=== PATIENT | female | born 1985 | race Two or more races ===

== ENCOUNTER 2024-10-23 15:15 | Emergency (ER) | payer MEDICAID, SELFPAY ==
[2024-10-23 15:23] VITALS: BP 110/73; PULSE 100; RESP 18; TEMP 38.2; O2SAT 97; BMI 27.4
--- NOTE | 2024-10-23 15:51 | PD.EDRME ---
Rapid Medical Screening Exam RME Arrival date/time: 10/23/24 15:15 Chief Complaint: Dental/Oral/Throat Time Seen by Provider: 10/23/24 15:17 Vital signs: Vital Signs Temperature 100.8 F H 10/23/24 15:23 Pulse Rate 100 10/23/24 15:23 Respiratory Rate 18 10/23/24 15:23 Blood Pressure 110/73 10/23/24 15:23 Pulse Oximetry (%) 97 10/23/24 15:23 Oxygen Delivery Method Room Air 10/23/24 15:23 RME Narrative: 38-year-old female presents to the ED with a complaint of sore throat, swollen glands, fever since yesterday. She is unable to swallow her oral secretions. She has had pain on the right side of her neck as well as a headache. She has had nausea and lower abdominal pain. She is unable to eat or drink anything. I have greeted and performed a focused initial assessment of this patient. A comprehensive ED assessment and evaluation of the patient, analysis of all test results, and completion of the medical decision making process will be conducted by additional ED providers.
[2024-10-23] MEDS: SODIUM CHLORIDE 0.9% 1000 ML 1,000 ML 999 ML IV (16:09)
[2024-10-23] MEDS: cefTRIAXone 2 GM in SODIUM CHLORIDE 0.9% (Popper) 50 ML IV (16:09)
[2024-10-23] MEDS: DEXAMETHASONE SOD PHOS INJ 10 MG/ML VIAL IVP (16:10)
[2024-10-23 16:15] LABS: Lactate (Lactic Acid) 0.8 mMol/L (0.4-2.0)
[2024-10-23 16:17] LABS: Basophils % (Auto) 0 % (0-2.5); Eosinophils % (Auto) 0 % (0-10); Hematocrit 39.5 % (36.0-46.0); Immature Granulocytes % (Auto) 0 % (0-0); Immature Granulocytes Auto 0.08 Thou/mm3 (0.00-0.00); Lymphocytes # (Auto) 1.8 Thou/mm3 (1.0-4.8); Lymphocytes % (Auto) 10 % (10-50); Mean Corpuscular HGB Conc 35.4 g/dl (31.0-37.0); Mean Corpuscular Volume 82 fL (80-100); Monocytes # (Auto) 1.1 Thou/mm3 (0.0-0.8); Monocytes % (Auto) 6 % (0-12); Neutrophils # (Auto) 15.4 Thou/mm3 (1.8-7.7); Neutrophils % (Auto) 84 % (37-80); Nucleated Red Blood Cell % 0 /100 WBC (0); Platelet Count 254 Thou/mm3 (140-440); RDW Standard Deviation 38.7 fL (36.4-46.3); Red Blood Count 4.82 Miln/mm3 (4.00-5.20); White Blood Count 18.4 Thou/mm3 (3.6-11.0)
--- NOTE | 2024-10-23 16:17 | EDNOTE_ITS ---
ED Dental RME/HPI General Chief complaint: Dental/Oral/Throat Stated complaint: SORE/SWOLLEN THROAT Time Seen by Provider: 10/23/24 15:17 Arrival date/time: 10/23/24 15:15 Limitations: no limitations RME / HPI RME / HPI Narrative: 38-year-old female presents to the ED with a complaint of sore throat, swollen glands, fever since yesterday. She is unable to swallow her oral secretions. She has had pain on the right side of her neck as well as a headache. She has had nausea and lower abdominal pain. She is unable to eat or drink anything. I have greeted and performed a focused initial assessment of this patient. A comprehensive ED assessment and evaluation of the patient, analysis of all test results, and completion of the medical decision making process will be conducted by additional ED providers. DR. ARIZA MAIN ED EVALUATION: 38 year old female with no stated medical history presents to the ED for evaluation of sore throat, right sided neck pain, and fevers beginning yesterday. Accompanied by difficulty swallowing and eating due to pain although states she is still able to swallow water. No other associated symptoms reported. No history of similar symptoms. Related Data Previous Rx's ?Medication ?Instructions ?Recorded amoxicillin 875 mg-potassium 1 tab PO BID peritonsilla r abscess 10/23/24 clavulanate 125 mg tablet #20 tabs prednisone 20 mg tablet 20 mg PO QDAY peritonsillar 10/23/24 abscess #18 tabs Allergies Allergy/AdvReac Type Severity Reaction Status Date / Time No Known Allergies Allergy Verified 10/23/24 15:18 Review of Systems Review of Systems Systems Reviewed: All systems reviewed, normal except as documented Past Medical History Past Medical History CARDIAC: Negative Congestive Heart Failure RESPIRATORY: Negative Chronic Obstructive Pulmonary Disease (COPD) GENITOURINARY: Negative Renal Disease ENDOCRINE: Negative Diabetes Mellitus Type 1 or Diabetes Mellitus Type 2 Social History SMOKING STATUS: Never smoker ED Exam General Limitations: Present no limitations General appearance: Present alert and other (ill appearing ) Head Head exam: Present atraumatic, normocephalic and normal inspection Eye Eye exam: Present normal appearance, PERRL and EOMI ENT ENT exam: Present normal exam, mucous membranes moist and other (right peritonsillar area with erythema, no exudate, both tonsillar pillars were erythematous, no lymph nodes ) Neck Neck exam: Present normal inspection, full ROM and trachea midline Chest Chest inspection: Present normal inspection and symmetric chest wall rise Respiratory Respiratory exam: Present normal lung sounds bilaterally Cardiovascular Cardiovascular exam: Present regular rate, normal rhythm and normal heart sounds Abdominal Exam Abdominal exam: Present soft and normal bowel sounds Extremities Exam Extremities exam: Present normal inspection and full ROM Back Exam Back exam: Present normal inspection and full ROM Neurological Exam Neurological exam: Present alert, oriented X3 and CN II-XII intact Psychiatric Psychiatric exam: Present normal affect and normal mood Skin Skin exam: Present warm, dry, intact and normal color Course Quality Measures none Orders Category Date Time Status Bedside COVID-19 Antigen Test NOW Care 10/23/24 15:46 Active Bedside Influenza A&B Antigen Test NOW Care 10/23/24 15:48 Completed Blood Culture (Lab) Stat Lab 10/23/24 16:23 Received CBC Stat Lab 10/23/24 16:08 Completed CMP [Comprehensive Metabolic Panel] Stat Lab 10/23/24 16:08 Completed Lactic Acid [Lactate (Lactic Acid)] Stat Lab 10/23/24 16:08 Completed Strep A Rapid Stat Lab 10/23/24 16:03 Completed Dexamethasone Inj [Decadron Inj] Med 10/23/24 15:48 Discontinued 10 mg IVP X1 ONE Dexamethasone Inj [Decadron Inj] Med 10/23/24 17:42 Discontinued 6 mg IVP X1 ONE Sodium Chloride 0.9% 1000 ml [Ns] 1,000 ml Med 10/23/24 15:48 Discontinued IV 999 mls/hr [id number] [Rocephin] 2 gm Med 10/23/24 15:48 Active SODIUM CHLORIDE 0.9% (Popper) [Ns 0.9% (P)] 50 ml IV QDAY Vital Signs Vital signs: Vital Signs Temperature 100.8 F H 10/23/24 15:23 Pulse Rate 100 10/23/24 15:23 Respiratory Rate 18 10/23/24 15:23 Blood Pressure 110/73 10/23/24 15:23 Pulse Oximetry (%) 97 10/23/24 15:23 Oxygen Delivery Method Room Air 10/23/24 15:23 Pulse ox is 97% on room air which is adequate. Dental / Oral MDM Narrative MDM Narrative:: Teagan Giordano am scribing for and in the presence of Dr. Ariza. Patient data External records reviewed:: None (No previous records for review ) Clinical information provided by:: patient Social determinants that could affect healthcare access:: none Patient has the following chronic illnesses:: None How is presenting disease/condition affected by chronic disease/condition?: no chronic disease Evaluation data The following diagnostics were reviewed and interpreted by me:: lab results Lab and/or radiology exams considered but not ordered:: None Interpretation Summary: Leukocytosis, CMP within normal limits Medications / Prescriptions Medications or Prescriptions considered but not ordered:: None Medication administrations:: Medication Administration History Ceftriaxone Sodium 2 gm/ (Sodium Chloride) 50 mls @ 100 mls/hr IV QDAY EVELIN Stop: 10/30/24 15:47 Last Infusion: 10/23/24 16:41 Dose: Infused Documented By: Admin: 10/23/24 16:09 Dose: 100 mls/hr Documented By: GABO Discontinued Medications Dexamethasone Sodium Phosphate (Dexamethasone Sod Phos Inj 10 Mg/Ml Vial) 10 mg IVP X1 ONE Stop: 10/23/24 15:49 Last Admin: 10/23/24 16:10 Dose: 10 mg Documented By: GABO Dexamethasone Sodium Phosphate (Dexamethasone Sod Phos Inj 10 Mg/Ml Vial) 6 mg IVP X1 ONE Stop: 10/23/24 17:43 Last Admin: 10/23/24 17:47 Dose: 6 mg Documented By: GABO Sodium Chloride (Ns) 1,000 mls @ 999 mls/hr IV .Q1H1M ONE Stop: 10/23/24 16:48 Last Infusion: 10/23/24 17:17 Dose: Infused Documented By: Admin: 10/23/24 16:09 Dose: 999 mls/hr Documented By: GABO See above Consultations Consultation(s) initiated? (list below): No Diagnosis Dental Differential Diagnosis: gingival abscess, dental abscess and other (peritonsillar abscess, tonsillitis ) Most likely diagnosis given after review of the tests above:: strep pharyngitis Admission Indicated Admission indicated?: not indicated Admission Request Was there a request for admission?: No Disposition Plan Disposition Plan: Discharge Discharge Attestation Discharge Attestation: The patient and all family members were given an opportunity to ask questions and understood the discharge instructions. Discharge instructions specifically effects, indications for sooner follow up or return to the emergency department, and the expected course of current diagnosis. Patient condition: Stable Discharge Plan Plan Patient Disposition: HOME (Self Care) Prescriptions/Referrals Prescriptions/Med Rec: New amoxicillin-pot clavulanate 875-125 mg tablet 1 tab PO BID MDD 2 Qty: 20 0RF prednisone 20 mg tablet 20 mg PO QDAY MDD 3 Qty: 18 0RF Rx Instructions: Take 3 Tabs q Day for 3 days then take 2 tabs q Day for 3 days then take 1 tablet q Day for 3 days then D/C Referrals: No Primary/Family,Physician [Primary Care Provider] - In 1 week Problem List Clinical Impression: Strep pharyngitis Patient/Caregiver Discharge Instructions Other Activity Instructions:: Bedrest, drink plenty of fluids. Take medications as directed. Return to ER for worsening swallowing. Education Materials: ED Pharyngitis, Strep (Confirmed) Print Language: Stateless Stand Alone Forms: Edith Award Info., Patient Portal Info Letter
--- NOTE | 2024-10-23 16:26 | PC.NURSE ---
PT PRESENTED TO ED FOR THROAT PAIN X1 DAY.
[2024-10-23 16:49] LABS: Alanine Aminotransferase 10 U/L (10-49); Albumin, Serum 4.6 gm/dL (3.5-5.0); Albumin/Globulin Ratio 1.5 (1.2-2.2); Alkaline Phosphatase 65 U/L (46-116); Anion Gap 9 (7-16); Aspartate Amino Transferase 12 U/L (0-34); BUN/Creatinine Ratio 9 Ratio (12-20); Bilirubin,Total 1.1 mg/dL (0.3-1.2); Blood Urea Nitrogen 6 mg/dL (9-23); Calcium 9.3 mg/dL (8.3-10.6); Calcium (Corrected) 9.3 mg/dL (8.5-10.1); Carbon Dioxide 24.8 mMol/L (20.0-31.0); Chloride 102 mMol/L (98-107); Creatinine (Component) 0.7 mg/dL (0.6-1.3); Estimated Creatinine Clearance 93.7 mL/min (>60); Globulin 3.1 gm/dL (2.3-3.5); Glucose 103 mg/dL (74-106); Osmolality,Calculated 269 (275-295); Potassium 3.5 mMol/L (3.4-5.1); Sodium 136 mMol/L (136-145); Total Protein 7.7 gm/dL (5.7-8.2); eGFR > 60 See Note
[2024-10-23 16:54] LABS: Strep A Rapid Positive (Negative)
--- NOTE | 2024-10-23 17:43 | PC.NURSE ---
PROVIDER PREFORMED SWALLOW EVAULATION ON PT WITH RN AT BEDSIDE. PT DID NOT CHOKE OR COUGH WHILE DRINKING WATER.
[2024-10-23] MEDS: DEXAMETHASONE SOD PHOS INJ 10 MG/ML VIAL 6 MG IVP (17:47)
[2024-10-23 17:53] VITALS: BP 101/54; PULSE 96; RESP 18; TEMP 37.1; O2SAT 95
== END 2024-10-23 17:53 | disposition home or self-care (01) ==
PROVIDERS: Physician Assistant; Emergency Provider Family Medicine
DX: J02.0 Streptococcal pharyngitis (principal)
CPT/HCPCS: 36415; 80053; 83605; 85025; 85652; 86140; 87040; 87400; 87651; 87811; 96361; 96365; 96375; 96376; 99284; J0696; J1100; J7030; J7050